=== PATIENT | female | born 1970 | race Caucasian/White ===

== ENCOUNTER 2018-03-20 00:40 | Inpatient (IN) ==
[2018-03-20] MEDS ORDERED: ONDANSETRON 4 MG/2 ML VIAL IV STA (01:01)
[2018-03-20] MEDS ORDERED: SODIUM CHLORIDE 0.9% 1,000 ML IV STA (01:01)
[2018-03-20] MEDS ORDERED: PANTOPRAZOLE 40 MG VIAL IV STA (01:01)
[2018-03-20] MEDS ORDERED: MORPHINE 4 MG/1 ML VIAL IV STA (01:01)
[2018-03-20 01:31] LABS: Basophils % 0.2 % (0.0-0.8); Eosinophils % 0.1 % (0.00-10.9); Hematocrit 34.9 VOL% (35.7-47.0); Hemoglobin 11.3 GM/DL (12.0-16.0); Immature Granulocytes % 2.1 %; Immature Granulocytes Absolute 0.34 #; Lymphocytes # 1.4 10*3/uL (1.4-4.0); Lymphocytes % 8.5 % (21.3-54.2); Mean Corpuscular HGB Conc 32.4 GM/DL (32-36); Mean Corpuscular Hemoglobin 32 PG (27-34); Mean Corpuscular Volume 97.5 FL (87-102); Mean Platelet Volume 11.2 FL (9.6-12.0); Monocytes # 1.4 10*3/uL (0.11-0.8); Monocytes % 8.5 % (1.7-12.7); Neutrophils # 13.3 10*3/uL (1.4-7.4); Neutrophils % 80.6 % (38.7-73.9); Platelet Count 93 T/CUMM (130-400); Red Blood Count 3.58 MC/CUMM (3.8-5.5); Red Cell Distribution Width 23.8 % (9.3-17.3); White Blood Count 16.5 T/CUMM (4-12)
[2018-03-20 01:52] LABS: Lactic Acid 1.5 MMOL/L (0.4-2.0)
[2018-03-20 02:12] LABS: Anisocytosis 1+; Band Neutrophils 14 % (0-10); Lymphocytes 4 % (20-55); Metamyelocytes 1 %; Nucleated Red Blood Cells 1 (0-5); Polychromasia 1+; Segmented Neutrophils 71 % (50-85); Total Cells Counted 100
[2018-03-20 02:13] LABS: Poikilocytosis 1+
[2018-03-20 02:31] LABS: Alanine Aminotransferase 30 U/L (13-56); Albumin 3.4 G/DL (3.4-5.0); Alkaline Phosphatase 117 U/L (45-117); Amylase 38 U/L (25-115); Aspartate Amino Transferase 23 U/L (0-37); Blood Urea Nitrogen 17 MG/DL (7-18); Calcium 9.3 MG/DL (8.5-10.1); Glucose 85 MG/DL (74-106); Osmolality,Calculated 275.7 MOS/KG (273-304); Potassium 3.3 MMOL/L (3.5-5.1); Sodium 138 MMOL/L (136-145); Total Protein 7.8 G/DL (6.4-8.3); Troponin I Only < 0.015 NG/ML (0.00-0.045)
[2018-03-20] MEDS ORDERED: ONDANSETRON 4 MG/2 ML VIAL IV PRN ×2 (02:47)
[2018-03-20] MEDS: DEXTROSE 5% LACTATED RINGERS 1,000 ML IV SCH ×4 (03:59→23:56)
[2018-03-20 04:07] LABS: Apearance,Urine CLEAR (Clear); Bilirubin,Urine Negative (Negative); Blood, Urine Small mg/dL (Negative); Glucose,Urine (UA) Negative (Negative); Ketones,Urine Negative (Negative); Mucus,Urine Occasional /LPF (Occasional); Nitrite,Urine Negative (Negative); Protein,Urine Negative; RBC,Urine 8 /HPF (0-4); Squamous Epithelial Cell,Urine Occasional /HPF (0-10); Urine Color Yellow (Yellow); Urine Specific Gravity > 1.060 (1.001-1.035); Urine Urobilinogen < 2.0 EU/DL (0.2-1.0); WBC,Urine 1 /HPF (0-6)
[2018-03-20] MEDS: MORPHINE 4 MG/1 ML VIAL IV PRN ×5 (04:35→23:01)
[2018-03-20] MEDS: PANTOPRAZOLE 40 MG VIAL IV SCH (08:32)
[2018-03-20] MEDS ORDERED: POTASSIUM CHLORIDE RIDER 20 MEQ in PREMIX 1 EACH IV PRN (08:43)
[2018-03-20] MEDS ORDERED: POTASSIUM CHLORIDE RIDER 10 MEQ in PREMIX 1 EACH IV PRN (08:43)
[2018-03-20] MEDS: POTASSIUM CHLORIDE RIDER 10 MEQ in PREMIX 1 EACH IV SCH ×5 (09:54→19:28)
[2018-03-20] MEDS ORDERED: BUPIVACAINE MPF 0.25% /EPI 30 ML VIAL ONE (14:07)
[2018-03-20] MEDS ORDERED: LIDOCAINE 1%/EPI INJ 20 ML VIAL ONE (14:07)
[2018-03-20] MEDS: AMPICILLIN/SULBACTAM 1,500 MG in SODIUM CHLORIDE 0.9% 100 ML IV SCH ×3 (15:33→22:18)
[2018-03-20] MEDS ORDERED: SEVOFLURANE 1 UNIT/15 MINUTE INH ONE (16:59)
[2018-03-20] MEDS ORDERED: MIDAZOLAM 2 MG/2 ML VIAL ONE (16:59)
[2018-03-20] MEDS ORDERED: PROPOFOL 200 MG/20 ML VIAL IV ONE (16:59)
[2018-03-20] MEDS ORDERED: fentaNYL 100 MCG/2 ML VIAL ONE (16:59)
[2018-03-20] MEDS ORDERED: ONDANSETRON 4 MG/2 ML VIAL ONE (17:00)
[2018-03-20] MEDS ORDERED: PHENYLEPHRINE 1 MG/10 ML SYRINGE IV ONE (17:00)
[2018-03-20] MEDS ORDERED: PHENYLEPHRINE 0.5% NASAL SPRAY 15 ML BOTTLE BOTH NARES ONE (17:00)
[2018-03-20] MEDS ORDERED: SCOPOLAMINE 1.5 MG PATCH TRANSDERM ONE (17:00)
[2018-03-20] MEDS ORDERED: SUCCINYLCHOLINE 200 MG/10 ML VIAL ONE (17:00)
[2018-03-20] MEDS ORDERED: DEXAMETHASONE 10 MG/1 ML VIAL ONE (17:00)
[2018-03-20] MEDS ORDERED: LACTATED RINGERS 2,000 ML IV ONE (17:01)
[2018-03-20] MEDS ORDERED: ROCURONIUM 100 MG/10 ML VIAL IV ONE (17:01)
[2018-03-20] MEDS ORDERED: LABETALOL 100 MG/20 ML VIAL IV ONE (17:01)
[2018-03-20] MEDS ORDERED: NEOSTIGMINE 10 MG/10 ML VIAL ONE (19:12)
[2018-03-21] MEDS: DEXTROSE 5% LACTATED RINGERS 1,000 ML IV SCH ×3 (03:06→22:01)
[2018-03-21 06:01] LABS: Basophils % 0.1 % (0.0-0.8); Hemoglobin 9.7 GM/DL (12.0-16.0); Immature Granulocytes % 1.3 %; Immature Granulocytes Absolute 0.11 #; Lymphocytes # 0.4 10*3/uL (1.4-4.0); Lymphocytes % 5.2 % (21.3-54.2); Mean Corpuscular HGB Conc 32.3 GM/DL (32-36); Mean Corpuscular Hemoglobin 32 PG (27-34); Mean Corpuscular Volume 97.4 FL (87-102); Mean Platelet Volume 11.2 FL (9.6-12.0); Monocytes # 0.4 10*3/uL (0.11-0.8); Monocytes % 4.9 % (1.7-12.7); NRBC # 0.02 10*3/uL; Neutrophils # 7.3 10*3/uL (1.4-7.4); Neutrophils % 88.5 % (38.7-73.9); Platelet Count 108 T/CUMM (130-400); Red Blood Count 3.08 MC/CUMM (3.8-5.5); Red Cell Distribution Width 23.1 % (9.3-17.3); White Blood Count 8.3 T/CUMM (4-12)
[2018-03-21 06:21] LABS: Anisocytosis 1+; Band Neutrophils 5 % (0-10); Hypochromasia 1+; Lymphocytes 6 % (20-55); Macrocytosis 1+; Segmented Neutrophils 86 % (50-85); Total Cells Counted 100
[2018-03-21] MEDS: AMPICILLIN/SULBACTAM 1,500 MG in SODIUM CHLORIDE 0.9% 100 ML IV SCH ×4 (06:21→23:13)
[2018-03-21 06:22] LABS: Platelet Estimate Decreased; Polychromasia Slight
[2018-03-21 06:24] LABS: Albumin 2.5 G/DL (3.4-5.0); Bilirubin,Total 0.6 MG/DL (0.2-1.0); Calcium 8.1 MG/DL (8.5-10.1); Osmolality,Calculated 275.8 MOS/KG (273-304); Potassium 4.4 MMOL/L (3.5-5.1); Total Protein 5.9 G/DL (6.4-8.3)
[2018-03-21] MEDS: MORPHINE 4 MG/1 ML VIAL IV PRN ×4 (06:31→20:27)
[2018-03-21] MEDS: PANTOPRAZOLE 40 MG VIAL IV SCH (10:34)
[2018-03-22] MEDS: MORPHINE 4 MG/1 ML VIAL IV PRN ×6 (01:22→21:29)
[2018-03-22] MEDS: AMPICILLIN/SULBACTAM 1,500 MG in SODIUM CHLORIDE 0.9% 100 ML IV SCH ×4 (05:00→23:26)
[2018-03-22] MEDS: DEXTROSE 5% LACTATED RINGERS 1,000 ML IV SCH ×3 (06:56→23:58)
[2018-03-22] MEDS: PANTOPRAZOLE 40 MG VIAL IV SCH (09:22)
[2018-03-23] MEDS: MORPHINE 4 MG/1 ML VIAL IV PRN ×4 (02:52→14:42)
[2018-03-23] MEDS: AMPICILLIN/SULBACTAM 1,500 MG in SODIUM CHLORIDE 0.9% 100 ML IV SCH ×4 (05:03→23:34)
[2018-03-23] MEDS: PANTOPRAZOLE 40 MG VIAL IV SCH (08:52)
[2018-03-23] MEDS: DEXTROSE 5% LACTATED RINGERS 1,000 ML IV SCH (10:50)
[2018-03-23] MEDS: FOLIC ACID 1 MG TABLET PO SCH (11:34)
[2018-03-23] MEDS: predniSONE 20 MG TABLET PO SCH (14:42)
[2018-03-23] MEDS ORDERED: FERROUS SULFATE 325 MG TABLET PO SCH (21:00)
[2018-03-24] MEDS: DEXTROSE 5% LACTATED RINGERS 1,000 ML IV SCH (00:50)
[2018-03-24] MEDS: AMPICILLIN/SULBACTAM 1,500 MG in SODIUM CHLORIDE 0.9% 100 ML IV SCH ×4 (05:03→22:13)
[2018-03-24 07:36] LABS: Basophils % 0.4 % (0.0-0.8); Eosinophils # 0.1 10*3/uL (0.0-0.87); Eosinophils % 1.3 % (0.00-10.9); Hematocrit 30.1 VOL% (35.7-47.0); Hemoglobin 9.2 GM/DL (12.0-16.0); Immature Granulocytes % 2.6 %; Immature Granulocytes Absolute 0.12 #; Lymphocytes # 0.6 10*3/uL (1.4-4.0); Lymphocytes % 12.7 % (21.3-54.2); Mean Corpuscular HGB Conc 30.6 GM/DL (32-36); Mean Corpuscular Hemoglobin 31 PG (27-34); Mean Corpuscular Volume 101.3 FL (87-102); Mean Platelet Volume 10.2 FL (9.6-12.0); Monocytes # 0.6 10*3/uL (0.11-0.8); Monocytes % 13.3 % (1.7-12.7); Neutrophils # 3.2 10*3/uL (1.4-7.4); Neutrophils % 69.7 % (38.7-73.9); Platelet Count 191 T/CUMM (130-400); Red Blood Count 2.97 MC/CUMM (3.8-5.5); Red Cell Distribution Width 20.9 % (9.3-17.3); White Blood Count 4.7 T/CUMM (4-12)
[2018-03-24 07:49] LABS: Calcium 8.4 MG/DL (8.5-10.1); Osmolality,Calculated 278.3 MOS/KG (273-304); Potassium 4.6 MMOL/L (3.5-5.1)
[2018-03-24 09:06] LABS: Hypochromasia 2+; Lymphocytes 10 % (20-55); Platelet Estimate Adequate; Segmented Neutrophils 80 % (50-85); Total Cells Counted 100
[2018-03-24] MEDS: PANTOPRAZOLE 40 MG VIAL IV SCH (09:15)
[2018-03-24] MEDS: predniSONE 20 MG TABLET PO SCH (09:16)
[2018-03-24] MEDS: FOLIC ACID 1 MG TABLET PO SCH (09:16)
[2018-03-25] MEDS: AMPICILLIN/SULBACTAM 1,500 MG in SODIUM CHLORIDE 0.9% 100 ML IV SCH ×4 (05:02→23:41)
[2018-03-25] MEDS: FOLIC ACID 1 MG TABLET PO SCH (09:40)
[2018-03-25] MEDS: PANTOPRAZOLE 40 MG VIAL IV SCH (09:40)
[2018-03-25] MEDS: predniSONE 20 MG TABLET PO SCH (09:40)
[2018-03-26] MEDS: AMPICILLIN/SULBACTAM 1,500 MG in SODIUM CHLORIDE 0.9% 100 ML IV SCH ×4 (05:52→22:51)
[2018-03-26] MEDS: PANTOPRAZOLE 40 MG VIAL IV SCH (08:39)
[2018-03-26] MEDS: predniSONE 20 MG TABLET PO SCH (08:39)
[2018-03-26] MEDS: FOLIC ACID 1 MG TABLET PO SCH (08:39)
[2018-03-26] MEDS ORDERED: MAGNESIUM HYDROXIDE SUSP 30 ML UDCUP PO ONE (11:32)
[2018-03-27] MEDS: AMPICILLIN/SULBACTAM 1,500 MG in SODIUM CHLORIDE 0.9% 100 ML IV SCH ×2 (04:47→11:22)
[2018-03-27] MEDS ORDERED: BISACODYL 10 MG SUPP RECTAL ONE (07:23)
[2018-03-27] MEDS: FOLIC ACID 1 MG TABLET PO SCH (08:49)
[2018-03-27] MEDS: predniSONE 20 MG TABLET PO SCH (08:49)
[2018-03-27] MEDS: PANTOPRAZOLE 40 MG VIAL IV SCH (08:49)
[2018-03-27 11:29] VITALS: BP 131/68
== END 2018-03-27 11:30 | disposition home or self-care (01) | DRG 329 ==
LOC: N.ED 00:40 → N.EDINP 02:47 → N.3E 03:26
PROVIDERS: ADMIT Surgery; ATTEND Surgery

== ENCOUNTER 2018-07-17 19:12 | Inpatient (IN) ==
[2018-07-17] MEDS ORDERED: ONDANSETRON 4 MG/2 ML VIAL IV STA (19:27)
[2018-07-17] MEDS ORDERED: METOCLOPRAMIDE 10 MG/2 ML VIAL IV STA (19:27)
[2018-07-17] MEDS ORDERED: SODIUM CHLORIDE 0.9% 1,000 ML IV STA (19:27)
[2018-07-17] MEDS ORDERED: DICYCLOMINE 20 MG/2 ML AMP IM ONE (19:27)
[2018-07-17 20:14] LABS: Basophils % 0.5 % (0.0-0.8); Eosinophils # 0.2 10*3/uL (0.0-0.87); Eosinophils % 3.8 % (0.00-10.9); Hemoglobin 11.7 GM/DL (12.0-16.0); Immature Granulocytes % 0.5 %; Immature Granulocytes Absolute 0.03 #; Lymphocytes # 0.3 10*3/uL (1.4-4.0); Lymphocytes % 5.6 % (21.3-54.2); Mean Corpuscular HGB Conc 30.8 GM/DL (32-36); Mean Corpuscular Hemoglobin 32 PG (27-34); Mean Corpuscular Volume 103.5 FL (87-102); Mean Platelet Volume 11.8 FL (9.6-12.0); Monocytes # 0.7 10*3/uL (0.11-0.8); Monocytes % 12.1 % (1.7-12.7); Neutrophils # 4.7 10*3/uL (1.4-7.4); Neutrophils % 77.5 % (38.7-73.9); Platelet Count 107 T/CUMM (130-400); Red Blood Count 3.67 MC/CUMM (3.8-5.5); Red Cell Distribution Width 14.4 % (9.3-17.3)
[2018-07-17 20:38] LABS: Albumin 3.7 G/DL (3.4-5.0); Bilirubin,Total 0.5 MG/DL (0.2-1.0); Calcium 9.2 MG/DL (8.5-10.1); Osmolality,Calculated 280.4 MOS/KG (273-304); Potassium 3.4 MMOL/L (3.5-5.1); Total Protein 8.9 G/DL (6.4-8.3)
[2018-07-17 21:25] LABS: Apearance,Urine CLEAR (Clear); Bilirubin,Urine Negative (Negative); Blood, Urine Moderate mg/dL (Negative); Glucose,Urine (UA) Negative (Negative); Ketones,Urine 5 mg/dL (Negative); Mucus,Urine Occasional /LPF (Occasional); Nitrite,Urine Negative (Negative); Protein,Urine 100 MG/DL; RBC,Urine 19 /HPF (0-4); Squamous Epithelial Cell,Urine Occasional /HPF (0-10); Urine Color Amber (Yellow); Urine Specific Gravity 1.027 (1.001-1.035); WBC,Urine 2 /HPF (0-6)
[2018-07-17 22:15] LABS: Anisocytosis 1+; Band Neutrophils 6 % (0-10); Eosinophils 4 % (0-10); Lymphocytes 4 % (20-55); Platelet Estimate Adequate; Segmented Neutrophils 77 % (50-85); Total Cells Counted 100
[2018-07-17] MEDS ORDERED: ONDANSETRON 4 MG/2 ML VIAL IV PRN (23:29)
[2018-07-17] MEDS ORDERED: MORPHINE 4 MG/1 ML VIAL IV PRN (23:29)
[2018-07-17] MEDS ORDERED: SODIUM CHLORIDE 0.9% 1,000 ML IV SCH (23:30)
[2018-07-17] MEDS ORDERED: POTASSIUM CHLORIDE INJ 40 MEQ in SODIUM CHLORIDE 0.9% 1,000 ML IV SCH (23:45)
[2018-07-18] MEDS: SODIUM CHLOR 0.9% KCL 40 MEQ 40 MEQ/1,000 ML BAG IV SCH ×3 (01:57→21:29)
[2018-07-18 05:43] LABS: Basophils % 0.6 % (0.0-0.8); Eosinophils # 0.3 10*3/uL (0.0-0.87); Eosinophils % 7.2 % (0.00-10.9); Hematocrit 29.9 VOL% (35.7-47.0); Hemoglobin 9.3 GM/DL (12.0-16.0); Immature Granulocytes % 0.6 %; Immature Granulocytes Absolute 0.02 #; Lymphocytes # 0.7 10*3/uL (1.4-4.0); Lymphocytes % 20.1 % (21.3-54.2); Mean Corpuscular HGB Conc 31.1 GM/DL (32-36); Mean Corpuscular Hemoglobin 32 PG (27-34); Mean Corpuscular Volume 102.7 FL (87-102); Mean Platelet Volume 10.1 FL (9.6-12.0); Monocytes # 0.7 10*3/uL (0.11-0.8); Monocytes % 18.9 % (1.7-12.7); Neutrophils # 1.9 10*3/uL (1.4-7.4); Neutrophils % 52.6 % (38.7-73.9); Platelet Count 131 T/CUMM (130-400); Red Blood Count 2.91 MC/CUMM (3.8-5.5); Red Cell Distribution Width 14.6 % (9.3-17.3); White Blood Count 3.6 T/CUMM (4-12)
[2018-07-18 06:01] LABS: Albumin 2.9 G/DL (3.4-5.0); Bilirubin,Total 0.6 MG/DL (0.2-1.0); Calcium 8.1 MG/DL (8.5-10.1); Osmolality,Calculated 281.1 MOS/KG (273-304); Potassium 4.2 MMOL/L (3.5-5.1); Total Protein 7.1 G/DL (6.4-8.3)
[2018-07-18 06:20] LABS: Atypical Lymphocytes Few; Band Neutrophils 1 % (0-10); Eosinophils 12 % (0-10); Lymphocytes 27 % (20-55); Segmented Neutrophils 49 % (50-85); Total Cells Counted 100
[2018-07-18 06:21] LABS: Hypochromasia 1+; Macrocytosis Slight
[2018-07-18] MEDS: PANTOPRAZOLE 40 MG VIAL IV SCH (10:31)
[2018-07-18] MEDS ORDERED: ACETAMINOPHEN 325 MG TABLET PO PRN (11:50)
[2018-07-18] MEDS ORDERED: ALPRAZolam 0.25 MG TABLET PO PRN (15:10)
[2018-07-18] MEDS ORDERED: ONDANSETRON 4 MG TABLET PO PRN (15:10)
[2018-07-18] MEDS ORDERED: traMADol 50 MG TABLET PO PRN (15:10)
[2018-07-18] MEDS: FOLIC ACID 1 MG TABLET PO SCH (15:49)
[2018-07-18] MEDS: LORATADINE 10 MG TABLET PO SCH (15:49)
[2018-07-19] MEDS: SODIUM CHLOR 0.9% KCL 40 MEQ 40 MEQ/1,000 ML BAG IV SCH (05:31)
[2018-07-19] MEDS: FOLIC ACID 1 MG TABLET PO SCH (08:38)
[2018-07-19] MEDS: LORATADINE 10 MG TABLET PO SCH (08:38)
[2018-07-19] MEDS: PANTOPRAZOLE 40 MG VIAL IV SCH (08:39)
[2018-07-19] MEDS ORDERED: ENOXAPARIN 40 MG/0.4 ML SYRINGE SUBCUT SCH (09:00)
[2018-07-19 10:58] VITALS: BP 108/57
== END 2018-07-19 13:10 | disposition home or self-care (01) | DRG 392 ==
LOC: EDUNIT# → EDBD → N.ED 19:12 → N.EDINP 23:29 → N.4E 07-18 01:21
PROVIDERS: ADMIT Internal Medicine; ATTEND Internal Medicine

== ENCOUNTER 2019-09-28 18:39 | Inpatient (IN) ==
[2019-09-28] MEDS ORDERED: SODIUM CHLORIDE 0.9% 1,000 ML IV STA (20:55)
[2019-09-28] MEDS ORDERED: ONDANSETRON 4 MG/2 ML VIAL IV ONE (20:55)
[2019-09-28] MEDS ORDERED: HYDROmorphone 2 MG/1 ML VIAL IV STA ×2 (20:56→22:56)
[2019-09-28] MEDS ORDERED: KETOROLAC 30 MG/1 ML VIAL IV ONE (20:56)
[2019-09-28 21:49] LABS: PT Patient Result 10.8 SECS (9.6-12.2)
[2019-09-28 21:50] LABS: Apearance,Urine CLEAR (Clear); Bacteria,Urine Occasional /HPF (Few); Bilirubin,Urine Negative (Negative); Blood, Urine Small mg/dL (Negative); Glucose,Urine (UA) Negative (Negative); Hyaline Casts,Urine 4 /LPF (0-3); Ketones,Urine 5 mg/dL (Negative); Mucus,Urine Many /LPF (Occasional); Nitrite,Urine Negative (Negative); Protein,Urine Negative; RBC,Urine 15 /HPF (0-4); Squamous Epithelial Cell,Urine Occasional /HPF (0-10); Urine Color Yellow (Yellow); Urine Specific Gravity 1.025 (1.001-1.035); WBC,Urine 1 /HPF (0-6)
[2019-09-28 21:59] LABS: Basophils # 0.1 10*3/uL (0.0-0.2); Basophils % 1.7 % (0.0-0.8); Eosinophils # 0.1 10*3/uL (0.0-0.87); Eosinophils % 1.7 % (0.00-10.9); Hematocrit 42.4 VOL% (35.7-47.0); Hemoglobin 12.5 GM/DL (12.0-16.0); Immature Granulocytes % 1.1 %; Immature Granulocytes Absolute 0.06 #; Lymphocytes # 0.7 10*3/uL (1.4-4.0); Lymphocytes % 13.1 % (21.3-54.2); Mean Corpuscular HGB Conc 29.5 GM/DL (32-36); Mean Corpuscular Volume 87.4 FL (87-102); Mean Platelet Volume 9.2 FL (9.6-12.0); Monocytes % 18.6 % (1.7-12.7); Neutrophils % 63.8 % (38.7-73.9); Platelet Count 478 T/CUMM (130-400); Red Blood Count 4.85 MC/CUMM (3.8-5.5); Red Cell Distribution Width 20.5 % (9.3-17.3); White Blood Count 5.3 T/CUMM (4-12)
[2019-09-28 22:01] LABS: Albumin 2.6 G/DL (3.4-5.0); Bilirubin,Total 0.4 MG/DL (0.2-1.0); Calcium 9.6 MG/DL (8.5-10.1); Osmolality,Calculated 280.1 MOS/KG (273-304); Total Protein 8.6 G/DL (6.4-8.3)
[2019-09-28 22:04] LABS: Anisocytosis Slight; Eosinophils 2 % (0-10); Hypochromasia Slight; Lymphocytes 11 % (20-55); Microcytosis Slight; Platelet Estimate Adequate; Segmented Neutrophils 71 % (50-85); Total Cells Counted 100
[2019-09-28] MEDS ORDERED: cefTRIAXone 1,000 MG in SODIUM CHLORIDE 0.9% 100 ML IV STA (23:52)
[2019-09-28] MEDS ORDERED: metroNIDAZOLE INJ 500 MG in PREMIX 1 EACH IV STA (23:52)
[2019-09-29] MEDS ORDERED: ONDANSETRON 4 MG/2 ML VIAL IV PRN (00:57)
[2019-09-29] MEDS ORDERED: DOCUSATE SODIUM 100 MG CAPSULE PO PRN (00:57)
[2019-09-29] MEDS ORDERED: diphenhydrAMINE CAP 25 MG CAPSULE PO PRN (00:57)
[2019-09-29] MEDS ORDERED: guaiFENesin/DM ER 600-30 MG TABLET PO PRN (00:57)
[2019-09-29] MEDS ORDERED: ZALEPLON 5 MG CAPSULE PO PRN (00:57)
[2019-09-29] MEDS ORDERED: ACETAMINOPHEN 325 MG TABLET PO PRN (00:57)
[2019-09-29] MEDS ORDERED: HYDROmorphone 2 MG/1 ML VIAL IV PRN (00:59)
[2019-09-29] MEDS ORDERED: fentaNYL 50 MCG/HR PATCH TRANSDERM ONE (00:59)
[2019-09-29 02:14] LABS: Alanine Aminotransferase < 9 U/L (13-56); Albumin 2.3 G/DL (3.4-5.0); Alkaline Phosphatase 186 U/L (45-117); Aspartate Amino Transferase 17 U/L (0-37); Bilirubin,Total < 0.39 MG/DL (0.2-1.0); Blood Urea Nitrogen 8 MG/DL (7-18); Calcium 8.9 MG/DL (8.5-10.1); Estimated Glom Filtration Rate 95 ML/MIN; Glucose 120 MG/DL (74-106); Osmolality,Calculated 279.3 MOS/KG (273-304); Total Protein 7.7 G/DL (6.4-8.3)
[2019-09-29 02:15] LABS: Basophils # 0.1 10*3/uL (0.0-0.2); Eosinophils # 0.1 10*3/uL (0.0-0.87); Eosinophils % 1.6 % (0.00-10.9); Hematocrit 39.2 VOL% (35.7-47.0); Hemoglobin 11.4 GM/DL (12.0-16.0); Immature Granulocytes % 1.3 %; Immature Granulocytes Absolute 0.07 #; Lymphocytes # 0.9 10*3/uL (1.4-4.0); Lymphocytes % 15.4 % (21.3-54.2); Mean Corpuscular HGB Conc 29.1 GM/DL (32-36); Mean Corpuscular Volume 88.1 FL (87-102); Mean Platelet Volume 9.8 FL (9.6-12.0); Monocytes % 19.7 % (1.7-12.7); Platelet Count 398 T/CUMM (130-400); Red Blood Count 4.45 MC/CUMM (3.8-5.5); Red Cell Distribution Width 20.5 % (9.3-17.3); White Blood Count 5.5 T/CUMM (4-12)
[2019-09-29 02:37] LABS: Atypical Lymphocytes Few; Eosinophils 2 % (0-10); Lymphocytes 21 % (20-55); Segmented Neutrophils 53 % (50-85)
[2019-09-29 02:39] LABS: Hypochromasia Slight; Platelet Estimate Increased; Polychromasia Few
[2019-09-29 02:40] LABS: Total Cells Counted 100
[2019-09-29] MEDS: SODIUM CHLORIDE 0.9% 1,000 ML IV SCH ×2 (02:58→15:35)
[2019-09-29] MEDS: metroNIDAZOLE INJ 500 MG in PREMIX 1 EACH IV SCH ×3 (03:00→18:13)
[2019-09-29] MEDS ORDERED: INFLUENZA VIRUS VACCINE 0.5 ML SYRINGE IM ONE (04:26)
[2019-09-29] MEDS: HYDROmorphone 2 MG/1 ML VIAL IV PRN ×5 (09:24→21:47)
[2019-09-29] MEDS: PANTOPRAZOLE 40 MG TABLET PO SCH (09:25)
[2019-09-29] MEDS: ENOXAPARIN 40 MG/0.4 ML SYRINGE SUBCUT SCH (09:25)
[2019-09-29] MEDS ORDERED: fentaNYL 75 MCG/HR PATCH TRANSDERM SCH (10:30)
[2019-09-29] MEDS ORDERED: LACTULOSE 20 GM/30 ML UDCUP PO ONE ×2 (10:30→15:00)
[2019-09-29] MEDS: DOCUSATE SODIUM 100 MG CAPSULE PO SCH ×2 (11:15→21:48)
[2019-09-30] MEDS: HYDROmorphone 2 MG/1 ML VIAL IV PRN ×6 (00:55→14:37)
[2019-09-30] MEDS ORDERED: cefTRIAXone 1,000 MG in SYRINGE 1 EACH IV SCH (01:00)
[2019-09-30] MEDS: metroNIDAZOLE INJ 500 MG in PREMIX 1 EACH IV SCH (02:31)
[2019-09-30] MEDS: SODIUM CHLORIDE 0.9% 1,000 ML IV SCH ×2 (04:58→19:33)
[2019-09-30] MEDS ORDERED: GABAPENTIN 100 MG CAPSULE PO SCH (09:00)
[2019-09-30] MEDS ORDERED: fentaNYL 100 MCG/HR PATCH TRANSDERM SCH (09:00)
[2019-09-30] MEDS: DOCUSATE SODIUM 100 MG CAPSULE PO SCH ×2 (09:02→20:12)
[2019-09-30] MEDS: PANTOPRAZOLE 40 MG TABLET PO SCH (09:02)
[2019-09-30] MEDS: ENOXAPARIN 40 MG/0.4 ML SYRINGE SUBCUT SCH (09:03)
[2019-09-30] MEDS ORDERED: NALOXONE 0.4 MG/ML VIAL IV PRN (12:54)
[2019-09-30] MEDS: GABAPENTIN 300 MG CAPSULE PO SCH ×2 (14:36→20:11)
[2019-09-30] MEDS: IBUPROFEN 600 MG TABLET PO SCH ×2 (14:36→20:11)
[2019-09-30] MEDS: HYDROmorphone PCA 30 MG/30 ML SYRINGE IV SCH (15:43)
[2019-10-01] MEDS: SODIUM CHLORIDE 0.9% 1,000 ML IV SCH ×3 (04:23→20:21)
[2019-10-01] MEDS: PANTOPRAZOLE 40 MG TABLET PO SCH (10:44)
[2019-10-01] MEDS: ENOXAPARIN 40 MG/0.4 ML SYRINGE SUBCUT SCH (10:44)
[2019-10-01] MEDS: GABAPENTIN 300 MG CAPSULE PO SCH ×3 (10:44→20:51)
[2019-10-01] MEDS: DOCUSATE SODIUM 100 MG CAPSULE PO SCH ×2 (10:44→20:51)
[2019-10-01] MEDS: IBUPROFEN 600 MG TABLET PO SCH ×3 (10:44→20:51)
[2019-10-01] MEDS: fentaNYL 25 MCG/HR PATCH TRANSDERM SCH (11:36)
[2019-10-01] MEDS: fentaNYL 100 MCG/HR PATCH TRANSDERM SCH (11:37)
[2019-10-01] MEDS: oxyCODONE/ACETAMINOPHEN 5-325 MG TABLET PO PRN ×2 (16:22→22:09)
[2019-10-02] MEDS: oxyCODONE/ACETAMINOPHEN 5-325 MG TABLET PO PRN ×4 (04:10→21:08)
[2019-10-02] MEDS: SODIUM CHLORIDE 0.9% 1,000 ML IV SCH (08:09)
[2019-10-02] MEDS: DOCUSATE SODIUM 100 MG CAPSULE PO SCH ×2 (08:39→22:03)
[2019-10-02] MEDS: GABAPENTIN 300 MG CAPSULE PO SCH ×3 (08:39→22:03)
[2019-10-02] MEDS: PANTOPRAZOLE 40 MG TABLET PO SCH (08:39)
[2019-10-02] MEDS: IBUPROFEN 600 MG TABLET PO SCH ×3 (08:39→22:03)
[2019-10-02] MEDS: ENOXAPARIN 40 MG/0.4 ML SYRINGE SUBCUT SCH (10:35)
[2019-10-03] MEDS: oxyCODONE/ACETAMINOPHEN 5-325 MG TABLET PO PRN ×6 (01:16→21:36)
[2019-10-03] MEDS: IBUPROFEN 600 MG TABLET PO SCH ×3 (08:08→21:37)
[2019-10-03] MEDS: GABAPENTIN 300 MG CAPSULE PO SCH ×3 (08:09→21:41)
[2019-10-03] MEDS: ENOXAPARIN 40 MG/0.4 ML SYRINGE SUBCUT SCH (08:09)
[2019-10-03] MEDS: DOCUSATE SODIUM 100 MG CAPSULE PO SCH ×2 (08:09→21:38)
[2019-10-03] MEDS: PANTOPRAZOLE 40 MG TABLET PO SCH (08:09)
[2019-10-03] MEDS: HYDROmorphone PCA 30 MG/30 ML SYRINGE IV SCH (13:35)
[2019-10-03] MEDS ORDERED: LORazepam 0.5 MG TABLET PO PRN (14:18)
[2019-10-04] MEDS: oxyCODONE/ACETAMINOPHEN 5-325 MG TABLET PO PRN ×5 (02:25→18:16)
[2019-10-04] MEDS: ENOXAPARIN 40 MG/0.4 ML SYRINGE SUBCUT SCH (08:31)
[2019-10-04] MEDS: fentaNYL 25 MCG/HR PATCH TRANSDERM SCH (08:31)
[2019-10-04] MEDS: IBUPROFEN 600 MG TABLET PO SCH ×3 (08:32→21:07)
[2019-10-04] MEDS: fentaNYL 100 MCG/HR PATCH TRANSDERM SCH (08:32)
[2019-10-04] MEDS: GABAPENTIN 300 MG CAPSULE PO SCH ×3 (08:33→21:07)
[2019-10-04] MEDS: PANTOPRAZOLE 40 MG TABLET PO SCH (08:33)
[2019-10-04] MEDS: DOCUSATE SODIUM 100 MG CAPSULE PO SCH ×2 (08:33→21:08)
[2019-10-04] MEDS: POLYETHYLENE GLYCOL POWDER 17 GM PACK PO SCH (09:53)
[2019-10-04] MEDS: HYDROmorphone PCA 30 MG/30 ML SYRINGE IV SCH ×3 (13:46→23:57)
[2019-10-04] MEDS ORDERED: oxyCODONE ER 40 MG TABLET PO SCH (21:00)
[2019-10-05] MEDS: IBUPROFEN 600 MG TABLET PO SCH ×3 (09:16→20:05)
[2019-10-05] MEDS: DOCUSATE SODIUM 100 MG CAPSULE PO SCH ×2 (09:16→20:05)
[2019-10-05] MEDS: POLYETHYLENE GLYCOL POWDER 17 GM PACK PO SCH (09:16)
[2019-10-05] MEDS: oxyCODONE ER 20 MG TABLET PO SCH ×2 (09:17→20:05)
[2019-10-05] MEDS: ENOXAPARIN 40 MG/0.4 ML SYRINGE SUBCUT SCH (09:17)
[2019-10-05] MEDS: GABAPENTIN 300 MG CAPSULE PO SCH ×3 (09:17→20:05)
[2019-10-05] MEDS: PANTOPRAZOLE 40 MG TABLET PO SCH (09:17)
[2019-10-05] MEDS: HYDROmorphone PCA 30 MG/30 ML SYRINGE IV SCH (13:33)
[2019-10-06] MEDS: oxyCODONE/ACETAMINOPHEN 5-325 MG TABLET PO PRN (03:23)
[2019-10-06 05:37] LABS: Calcium 9.2 MG/DL (8.5-10.1); Osmolality,Calculated 283.8 MOS/KG (273-304)
[2019-10-06] MEDS: POLYETHYLENE GLYCOL POWDER 17 GM PACK PO SCH (09:12)
[2019-10-06] MEDS: IBUPROFEN 600 MG TABLET PO SCH ×3 (09:12→20:19)
[2019-10-06] MEDS: DOCUSATE SODIUM 100 MG CAPSULE PO SCH ×2 (09:12→20:19)
[2019-10-06] MEDS: oxyCODONE ER 20 MG TABLET PO SCH (09:12)
[2019-10-06] MEDS: GABAPENTIN 300 MG CAPSULE PO SCH (09:12)
[2019-10-06] MEDS: PANTOPRAZOLE 40 MG TABLET PO SCH (09:12)
[2019-10-06] MEDS: HYDROmorphone PCA 30 MG/30 ML SYRINGE IV SCH ×2 (09:25→14:20)
[2019-10-06] MEDS: ENOXAPARIN 40 MG/0.4 ML SYRINGE SUBCUT SCH (09:31)
[2019-10-06] MEDS: oxyCODONE IR 5 MG TABLET PO PRN ×2 (16:39→22:08)
[2019-10-06] MEDS: PREGABALIN 75 MG CAPSULE PO SCH ×2 (16:39→20:19)
[2019-10-06] MEDS: oxyCODONE ER 10 MG TABLET PO SCH (20:19)
[2019-10-07] MEDS: oxyCODONE IR 5 MG TABLET PO PRN ×3 (05:59→15:19)
[2019-10-07] MEDS: IBUPROFEN 600 MG TABLET PO SCH ×3 (08:01→20:33)
[2019-10-07] MEDS: PANTOPRAZOLE 40 MG TABLET PO SCH (08:02)
[2019-10-07] MEDS: fentaNYL 25 MCG/HR PATCH TRANSDERM SCH (08:02)
[2019-10-07] MEDS: fentaNYL 100 MCG/HR PATCH TRANSDERM SCH (08:02)
[2019-10-07] MEDS: DOCUSATE SODIUM 100 MG CAPSULE PO SCH ×2 (08:02→20:35)
[2019-10-07] MEDS: oxyCODONE ER 10 MG TABLET PO SCH ×2 (08:02→20:34)
[2019-10-07] MEDS: ENOXAPARIN 40 MG/0.4 ML SYRINGE SUBCUT SCH (08:08)
[2019-10-07] MEDS: POLYETHYLENE GLYCOL POWDER 17 GM PACK PO SCH (08:08)
[2019-10-07] MEDS: PREGABALIN 75 MG CAPSULE PO SCH ×3 (08:09→20:35)
[2019-10-08] MEDS: oxyCODONE IR 5 MG TABLET PO PRN ×3 (00:55→11:15)
[2019-10-08] MEDS: ENOXAPARIN 40 MG/0.4 ML SYRINGE SUBCUT SCH (08:08)
[2019-10-08] MEDS: IBUPROFEN 600 MG TABLET PO SCH (08:09)
[2019-10-08] MEDS: oxyCODONE ER 10 MG TABLET PO SCH (08:09)
[2019-10-08] MEDS: PANTOPRAZOLE 40 MG TABLET PO SCH (08:09)
[2019-10-08] MEDS: PREGABALIN 75 MG CAPSULE PO SCH (08:09)
[2019-10-08] MEDS: POLYETHYLENE GLYCOL POWDER 17 GM PACK PO SCH (08:09)
[2019-10-08] MEDS: DOCUSATE SODIUM 100 MG CAPSULE PO SCH (08:09)
[2019-10-08 11:27] VITALS: BP 91/51
[2019-10-08] MEDS: HYDROmorphone PCA 30 MG/30 ML SYRINGE IV SCH (11:49)
== END 2019-10-08 13:46 | disposition home or self-care (01) | DRG 948 ==
LOC: N.ED 18:39 → N.EDINP 23:58 → SUATTDRO 23:58 → N.4E 09-29 00:31
PROVIDERS: ADMIT Internal Medicine; ATTEND Internal Medicine

== ENCOUNTER 2019-10-09 20:06 | Inpatient (IN) ==
[2019-10-09] MEDS ORDERED: HYDROmorphone 2 MG/1 ML VIAL IV STA ×2 (20:46→21:37)
[2019-10-09] MEDS ORDERED: SODIUM CHLORIDE 0.9% 500 ML IV STA (20:46)
[2019-10-09] MEDS ORDERED: ONDANSETRON 4 MG/2 ML VIAL IV STA (20:46)
[2019-10-09 21:07] LABS: Basophils # 0.1 10*3/uL (0.0-0.2); Basophils % 0.7 % (0.0-0.8); Eosinophils # 0.1 10*3/uL (0.0-0.87); Eosinophils % 0.8 % (0.00-10.9); Hematocrit 41.8 VOL% (35.7-47.0); Hemoglobin 12.3 GM/DL (12.0-16.0); Immature Granulocytes % 0.6 %; Immature Granulocytes Absolute 0.06 #; Lymphocytes # 0.6 10*3/uL (1.4-4.0); Mean Corpuscular HGB Conc 29.4 GM/DL (32-36); Mean Corpuscular Volume 90.3 FL (87-102); Mean Platelet Volume 9.1 FL (9.6-12.0); Monocytes % 11.7 % (1.7-12.7); Neutrophils % 80.2 % (38.7-73.9); Platelet Count 499 T/CUMM (130-400); Red Blood Count 4.63 MC/CUMM (3.8-5.5); White Blood Count 10.6 T/CUMM (4-12)
[2019-10-09 21:28] LABS: Albumin 2.7 G/DL (3.4-5.0); Bilirubin,Total 0.5 MG/DL (0.2-1.0); Calcium 10.2 MG/DL (8.5-10.1); Osmolality,Calculated 269.1 MOS/KG (273-304); Total Protein 9.7 G/DL (6.4-8.3)
[2019-10-09] MEDS ORDERED: diphenhydrAMINE CAP 25 MG CAPSULE PO PRN (22:09)
[2019-10-09] MEDS ORDERED: PROMETHAZINE 25 MG TABLET PO PRN (22:09)
[2019-10-09] MEDS ORDERED: guaiFENesin/DM ER 600-30 MG TABLET PO PRN (22:09)
[2019-10-09] MEDS ORDERED: ACETAMINOPHEN 325 MG TABLET PO PRN (22:09)
[2019-10-09] MEDS ORDERED: DOCUSATE SODIUM 100 MG CAPSULE PO PRN (22:09)
[2019-10-09] MEDS ORDERED: ZALEPLON 5 MG CAPSULE PO PRN (22:09)
[2019-10-09] MEDS: SODIUM CHLORIDE 0.9% 1,000 ML IV SCH (23:52)
[2019-10-10] MEDS: HYDROmorphone 2 MG/1 ML VIAL IV PRN ×5 (00:43→17:21)
[2019-10-10] MEDS: ONDANSETRON 4 MG/2 ML VIAL IV PRN ×2 (00:43→05:55)
[2019-10-10 06:15] LABS: Basophils # 0.1 10*3/uL (0.0-0.2); Basophils % 1.3 % (0.0-0.8); Eosinophils # 0.1 10*3/uL (0.0-0.87); Eosinophils % 1.1 % (0.00-10.9); Hemoglobin 10.2 GM/DL (12.0-16.0); Immature Granulocytes % 0.8 %; Immature Granulocytes Absolute 0.06 #; Lymphocytes # 0.7 10*3/uL (1.4-4.0); Lymphocytes % 8.8 % (21.3-54.2); Mean Corpuscular HGB Conc 29.1 GM/DL (32-36); Mean Corpuscular Volume 91.2 FL (87-102); Monocytes % 13.1 % (1.7-12.7); Neutrophils % 74.9 % (38.7-73.9); Platelet Count 418 T/CUMM (130-400); Red Blood Count 3.85 MC/CUMM (3.8-5.5); Red Cell Distribution Width 21.8 % (9.3-17.3)
[2019-10-10 06:27] LABS: Calcium 9.4 MG/DL (8.5-10.1); Osmolality,Calculated 274.5 MOS/KG (273-304)
[2019-10-10 06:51] LABS: Hematocrit 34.2 VOL% (35.7-47.0)
[2019-10-10] MEDS ORDERED: INFLUENZA VIRUS VACCINE 0.5 ML SYRINGE IM ONE (07:34)
[2019-10-10] MEDS ORDERED: oxyCODONE IR 5 MG TABLET PO PRN (08:18)
[2019-10-10] MEDS: oxyCODONE ER 40 MG TABLET PO SCH ×2 (08:38→20:59)
[2019-10-10] MEDS: PANTOPRAZOLE 40 MG TABLET PO SCH (08:38)
[2019-10-10] MEDS: PREGABALIN 75 MG CAPSULE PO SCH ×3 (08:38→20:59)
[2019-10-10] MEDS: ENOXAPARIN 40 MG/0.4 ML SYRINGE SUBCUT SCH (08:38)
[2019-10-10] MEDS ORDERED: fentaNYL 25 MCG/HR PATCH TRANSDERM SCH (09:00)
[2019-10-10] MEDS: SODIUM CHLORIDE 0.9% 1,000 ML IV SCH (11:45)
[2019-10-10] MEDS ORDERED: fentaNYL 50 MCG/HR PATCH TRANSDERM SCH (12:33)
[2019-10-10] MEDS: HYDROmorphone 2 MG TABLET PO PRN (15:49)
[2019-10-10] MEDS ORDERED: DULoxetine 30 MG CAPSULE PO SCH (21:00)
[2019-10-10] MEDS: traZODone 50 MG TABLET PO SCH ×2 (21:09)
[2019-10-11] MEDS: SODIUM CHLORIDE 0.9% 1,000 ML IV SCH (04:14)
[2019-10-11] MEDS: HYDROmorphone 2 MG TABLET PO PRN ×5 (04:55→20:40)
[2019-10-11] MEDS: ENOXAPARIN 40 MG/0.4 ML SYRINGE SUBCUT SCH (08:11)
[2019-10-11] MEDS: oxyCODONE ER 40 MG TABLET PO SCH ×2 (08:11→20:41)
[2019-10-11] MEDS: PREGABALIN 75 MG CAPSULE PO SCH ×3 (08:11→20:41)
[2019-10-11] MEDS: PANTOPRAZOLE 40 MG TABLET PO SCH (08:11)
[2019-10-11] MEDS ORDERED: IBUPROFEN 800 MG TABLET PO ONE (10:51)
[2019-10-11] MEDS: traZODone 50 MG TABLET PO SCH (20:41)
[2019-10-12] MEDS: HYDROmorphone 2 MG TABLET PO PRN ×7 (00:34→23:06)
[2019-10-12] MEDS: oxyCODONE ER 40 MG TABLET PO SCH ×2 (08:37→20:26)
[2019-10-12] MEDS: PANTOPRAZOLE 40 MG TABLET PO SCH (08:37)
[2019-10-12] MEDS: PREGABALIN 75 MG CAPSULE PO SCH ×3 (08:37→20:25)
[2019-10-12] MEDS: ENOXAPARIN 40 MG/0.4 ML SYRINGE SUBCUT SCH (08:40)
[2019-10-12] MEDS ORDERED: fentaNYL 50 MCG/HR PATCH TRANSDERM SCH (09:00)
[2019-10-12] MEDS ORDERED: fentaNYL 100 MCG/HR PATCH TRANSDERM SCH (09:00)
[2019-10-12] MEDS ORDERED: fentaNYL 25 MCG/HR PATCH TRANSDERM SCH (09:00)
[2019-10-12] MEDS ORDERED: POLYETHYLENE GLYCOL POWDER 17 GM PACK PO PRN (12:57)
[2019-10-12] MEDS ORDERED: POLYETHYLENE GLYCOL POWDER 17 GM PACK PO ONE (12:58)
[2019-10-12] MEDS: DOCUSATE SODIUM 100 MG CAPSULE PO SCH ×2 (16:16→20:26)
[2019-10-12] MEDS: traZODone 50 MG TABLET PO SCH (20:25)
[2019-10-12] MEDS: IBUPROFEN 600 MG TABLET PO PRN (20:25)
[2019-10-13] MEDS: HYDROmorphone 2 MG TABLET PO PRN ×5 (03:24→18:34)
[2019-10-13] MEDS: DOCUSATE SODIUM 100 MG CAPSULE PO SCH (09:48)
[2019-10-13] MEDS: PREGABALIN 75 MG CAPSULE PO SCH ×2 (09:48→16:42)
[2019-10-13] MEDS: oxyCODONE ER 40 MG TABLET PO SCH (09:48)
[2019-10-13] MEDS: ENOXAPARIN 40 MG/0.4 ML SYRINGE SUBCUT SCH (09:48)
[2019-10-13] MEDS: IBUPROFEN 600 MG TABLET PO PRN (09:48)
[2019-10-13] MEDS: PANTOPRAZOLE 40 MG TABLET PO SCH (09:48)
[2019-10-13 15:41] VITALS: BP 104/64
== END 2019-10-13 18:54 | disposition home or self-care (01) | DRG 948 ==
LOC: N.ED 20:06 → N.EDINP 20:06 → SUATTDRO 22:09 → N.EDINP 23:00 → N.4E 23:21
PROVIDERS: ADMIT Internal Medicine; ATTEND Family Medicine

== ENCOUNTER 2020-02-08 05:34 | Inpatient (IN) ==
[2020-02-08] MEDS ORDERED: HYDROmorphone 2 MG/1 ML VIAL IV STA ×3 (06:25→09:12)
[2020-02-08] MEDS ORDERED: PIPERACILLIN/TAZOBACTAM 3,375 MG in SODIUM CHLORIDE 0.9% 100 ML IV STA (06:25)
[2020-02-08] MEDS ORDERED: SODIUM CHLORIDE 0.9% 1,000 ML IV STA (06:25)
[2020-02-08] MEDS ORDERED: ONDANSETRON 4 MG/2 ML VIAL IV STA (06:25)
[2020-02-08 06:40] LABS: Basophils % 0.1 % (0.0-0.8); Immature Granulocytes % 0.4 %; Immature Granulocytes Absolute 0.06 #; Lymphocytes # 0.2 10*3/uL (1.4-4.0); Lymphocytes % 1.4 % (21.3-54.2); Mean Corpuscular HGB Conc 29.7 GM/DL (32-36); Mean Corpuscular Volume 87.5 FL (87-102); Monocytes % 3.9 % (1.7-12.7); Neutrophils % 94.2 % (38.7-73.9); Platelet Count 247 T/CUMM (130-400); Red Blood Count 4.23 MC/CUMM (3.8-5.5); Red Cell Distribution Width 19.2 % (9.3-17.3); White Blood Count 14.1 T/CUMM (4-12)
[2020-02-08] MEDS ORDERED: DILTIAZEM 50 MG/10 ML VIAL IV STA (06:45)
[2020-02-08 06:53] LABS: Alanine Aminotransferase < 6 U/L (13-56); Albumin 1.9 G/DL (3.4-5.0); Alkaline Phosphatase 111 U/L (45-117); Aspartate Amino Transferase 21 U/L (0-37); Blood Urea Nitrogen 24 MG/DL (7-18); Calcium 11.1 MG/DL (8.5-10.1); Estimated Glom Filtration Rate 89 ML/MIN; Glucose 90 MG/DL (74-106); Osmolality,Calculated 273.1 MOS/KG (273-304); Total Protein 7.6 G/DL (6.4-8.3)
[2020-02-08] MEDS ORDERED: dilTIAZem Drip 125 MG/125 ML PREMIX IV SCH (07:00)
[2020-02-08 07:12] LABS: INR 1.2; PT Patient Result 12.3 SECS (9.8-11.9)
[2020-02-08 07:35] LABS: Anisocytosis 1+; Band Neutrophils 24 % (0-10); Lymphocytes 2 % (20-55); Metamyelocytes 1 %; Platelet Estimate Normal; Poikilocytosis Slight; Segmented Neutrophils 69 % (50-85); Total Cells Counted 100
[2020-02-08 09:47] LABS: Apearance,Urine CLEAR (Clear); Bilirubin,Urine Negative (Negative); Blood, Urine Negative (Negative); Glucose,Urine (UA) Negative (Negative); Ketones,Urine 5 mg/dL (Negative); Mucus,Urine Occasional /LPF (Occasional); Nitrite,Urine Negative (Negative); Protein,Urine 30 MG/DL; RBC,Urine 7 /HPF (0-4); Squamous Epithelial Cell,Urine Moderate /HPF (0-10); Urine Color Yellow (Yellow); Urine Specific Gravity > 1.060 (1.001-1.035); WBC,Urine 1 /HPF (0-6)
[2020-02-08] MEDS ORDERED: GLUCAGON 1 MG VIAL IM PRN (10:23)
[2020-02-08] MEDS ORDERED: ACETAMINOPHEN 325 MG TABLET PO PRN (10:23)
[2020-02-08] MEDS ORDERED: DEXTROSE 10% 250 ML BAG IV PRN (10:23)
[2020-02-08] MEDS ORDERED: POTASSIUM CHLORIDE RIDER 10 MEQ in PREMIX 1 EACH IV PRN (10:27)
[2020-02-08] MEDS: HYDROmorphone 2 MG/1 ML VIAL IV PRN ×5 (13:20→22:55)
[2020-02-08] MEDS ORDERED: LACTULOSE 20 GM/30 ML UDCUP PO PRN (14:45)
[2020-02-08] MEDS ORDERED: MORPHINE ER 30 MG TABLET PO SCH (15:00)
[2020-02-08] MEDS: fentaNYL 100 MCG/HR PATCH TRANSDERM SCH (16:41)
[2020-02-08] MEDS: SODIUM CHLORIDE 0.9% 1,000 ML IV SCH (16:41)
[2020-02-08] MEDS: PIPERACILLIN/TAZOBACTAM 3,375 MG in SODIUM CHLORIDE 0.9% 100 ML IV SCH (16:41)
[2020-02-08] MEDS: MORPHINE ER 30 MG TABLET PO PRN (21:42)
[2020-02-09] MEDS: PIPERACILLIN/TAZOBACTAM 3,375 MG in SODIUM CHLORIDE 0.9% 100 ML IV SCH ×3 (02:51→17:08)
[2020-02-09] MEDS: HYDROmorphone 2 MG/1 ML VIAL IV PRN ×2 (03:39→09:39)
[2020-02-09] MEDS: SODIUM CHLORIDE 0.9% 1,000 ML IV SCH ×2 (05:14→17:09)
[2020-02-09 07:25] LABS: Alanine Aminotransferase < 6 U/L (13-56); Albumin 1.4 G/DL (3.4-5.0); Alkaline Phosphatase 86 U/L (45-117); Aspartate Amino Transferase 26 U/L (0-37); Blood Urea Nitrogen 22 MG/DL (7-18); Calcium 10.3 MG/DL (8.5-10.1); Estimated Glom Filtration Rate 89 ML/MIN; Glucose 74 MG/DL (74-106); Osmolality,Calculated 274.8 MOS/KG (273-304); Total Protein 6.3 G/DL (6.4-8.3)
[2020-02-09 08:31] LABS: Basophils % 0.2 % (0.0-0.8); Hematocrit 32.3 VOL% (35.7-47.0); Hemoglobin 9.5 GM/DL (12.0-16.0); Immature Granulocytes % 0.5 %; Immature Granulocytes Absolute 0.07 #; Lymphocytes # 0.2 10*3/uL (1.4-4.0); Lymphocytes % 1.4 % (21.3-54.2); Mean Corpuscular HGB Conc 29.4 GM/DL (32-36); Mean Corpuscular Volume 88.7 FL (87-102); Mean Platelet Volume 10.8 FL (9.6-12.0); Monocytes % 5.9 % (1.7-12.7); Red Blood Count 3.64 MC/CUMM (3.8-5.5); White Blood Count 15.4 T/CUMM (4-12)
[2020-02-09 08:36] LABS: Platelet Count 271 T/CUMM (130-400)
[2020-02-09 09:34] LABS: Anisocytosis 2+; Band Neutrophils 25 % (0-10); Lymphocytes 1 % (20-55); Platelet Estimate Normal; Poikilocytosis Slight; Polychromasia Slight; Segmented Neutrophils 64 % (50-85); Total Cells Counted 100
[2020-02-09] MEDS ORDERED: NALOXONE 0.4 MG/ML VIAL IV PRN (09:34)
[2020-02-09] MEDS: ONDANSETRON 4 MG/2 ML VIAL IV PRN ×3 (09:36→17:27)
[2020-02-09] MEDS: PANTOPRAZOLE 40 MG TABLET PO SCH (09:41)
[2020-02-09] MEDS: HYDROmorphone PCA 30 MG/30 ML SYRINGE IV SCH (11:50)
[2020-02-09] MEDS: MORPHINE ER 30 MG TABLET PO PRN (17:06)
[2020-02-09] MEDS: POTASSIUM CHLORIDE 20 MEQ TABLET PO PRN (17:23)
[2020-02-10] MEDS: PIPERACILLIN/TAZOBACTAM 3,375 MG in SODIUM CHLORIDE 0.9% 100 ML IV SCH ×3 (02:00→17:59)
[2020-02-10 07:08] LABS: Basophils % 0.2 % (0.0-0.8); Eosinophils % 0.1 % (0.00-10.9); Hematocrit 28.9 VOL% (35.7-47.0); Hemoglobin 8.6 GM/DL (12.0-16.0); Immature Granulocytes Absolute 0.15 #; Lymphocytes # 0.2 10*3/uL (1.4-4.0); Lymphocytes % 1.4 % (21.3-54.2); Mean Corpuscular HGB Conc 29.8 GM/DL (32-36); Mean Platelet Volume 10.2 FL (9.6-12.0); Monocytes % 6.7 % (1.7-12.7); Neutrophils % 90.6 % (38.7-73.9); Platelet Count 229 T/CUMM (130-400); Red Blood Count 3.32 MC/CUMM (3.8-5.5); Red Cell Distribution Width 18.8 % (9.3-17.3); White Blood Count 15.6 T/CUMM (4-12)
[2020-02-10 07:23] LABS: Alanine Aminotransferase < 6 U/L (13-56); Albumin 1.3 G/DL (3.4-5.0); Alkaline Phosphatase 73 U/L (45-117); Aspartate Amino Transferase 24 U/L (0-37); Blood Urea Nitrogen 21 MG/DL (7-18); Calcium 10.3 MG/DL (8.5-10.1); Estimated Glom Filtration Rate 94 ML/MIN; Glucose 71 MG/DL (74-106); Osmolality,Calculated 279.4 MOS/KG (273-304); Total Protein 5.6 G/DL (6.4-8.3)
[2020-02-10 07:33] LABS: Band Neutrophils 9 % (0-10); Hypochromasia 1+; Lymphocytes 1 % (20-55); Segmented Neutrophils 81 % (50-85); Total Cells Counted 100
[2020-02-10 07:34] LABS: Anisocytosis 1+; Ovalocytes Slight
[2020-02-10] MEDS: PANTOPRAZOLE 40 MG TABLET PO SCH (09:09)
[2020-02-10] MEDS: MORPHINE ER 15 MG TABLET PO SCH ×3 (09:16→21:12)
[2020-02-10] MEDS: MORPHINE ER 30 MG TABLET PO SCH ×2 (09:16→15:33)
[2020-02-10] MEDS: POTASSIUM CHLORIDE 20 MEQ TABLET PO PRN ×4 (12:40→21:12)
[2020-02-10] MEDS: SODIUM CHLORIDE 0.9% 1,000 ML IV SCH (15:01)
[2020-02-11] MEDS: MORPHINE ER 30 MG TABLET PO SCH ×3 (00:24→16:08)
[2020-02-11] MEDS: PIPERACILLIN/TAZOBACTAM 3,375 MG in SODIUM CHLORIDE 0.9% 100 ML IV SCH ×3 (00:25→17:37)
[2020-02-11 06:28] LABS: Alanine Aminotransferase < 6 U/L (13-56); Albumin 1.2 G/DL (3.4-5.0); Alkaline Phosphatase 83 U/L (45-117); Aspartate Amino Transferase 29 U/L (0-37); Blood Urea Nitrogen 18 MG/DL (7-18); Calcium 10.7 MG/DL (8.5-10.1); Estimated Glom Filtration Rate 94 ML/MIN; Glucose 66 MG/DL (74-106); Osmolality,Calculated 276.5 MOS/KG (273-304); Total Protein 5.6 G/DL (6.4-8.3)
[2020-02-11 06:47] LABS: Basophils # 0.1 10*3/uL (0.0-0.2); Basophils % 0.3 % (0.0-0.8); Eosinophils % 0.1 % (0.00-10.9); Hematocrit 32.3 VOL% (35.7-47.0); Immature Granulocytes % 0.7 %; Immature Granulocytes Absolute 0.12 #; Lymphocytes # 0.3 10*3/uL (1.4-4.0); Lymphocytes % 1.6 % (21.3-54.2); Mean Corpuscular HGB Conc 27.9 GM/DL (32-36); Mean Corpuscular Volume 91.8 FL (87-102); Mean Platelet Volume 10.5 FL (9.6-12.0); Monocytes % 6.9 % (1.7-12.7); Neutrophils % 90.4 % (38.7-73.9); Platelet Count 246 T/CUMM (130-400); Red Blood Count 3.52 MC/CUMM (3.8-5.5); White Blood Count 18.4 T/CUMM (4-12)
[2020-02-11 07:01] LABS: Band Neutrophils 5 % (0-10); Lymphocytes 2 % (20-55); Segmented Neutrophils 87 % (50-85); Total Cells Counted 100
[2020-02-11 07:02] LABS: Hypochromasia 1+; Ovalocytes Slight; Platelet Estimate Adequate
[2020-02-11 07:03] LABS: Burr Cells Slight
[2020-02-11] MEDS: fentaNYL 100 MCG/HR PATCH TRANSDERM SCH (09:00)
[2020-02-11] MEDS: MORPHINE ER 15 MG TABLET PO SCH ×3 (09:02→21:03)
[2020-02-11] MEDS: POTASSIUM CHLORIDE 20 MEQ TABLET PO PRN ×3 (09:02→17:37)
[2020-02-11] MEDS: PANTOPRAZOLE 40 MG TABLET PO SCH (09:02)
[2020-02-11] MEDS ORDERED: HYDROmorphone 2 MG TABLET PO PRN (10:19)
[2020-02-11] MEDS: SODIUM CHLORIDE 0.9% 1,000 ML IV SCH (15:25)
[2020-02-11] MEDS: METHYLNALTREXONE 12 MG/0.6 ML VIAL SUBCUT SCH (15:28)
[2020-02-11] MEDS: HYDROmorphone PCA 30 MG/30 ML SYRINGE IV SCH ×2 (16:46→16:47)
[2020-02-12] MEDS: MORPHINE ER 30 MG TABLET PO SCH ×3 (00:41→16:05)
[2020-02-12] MEDS: PIPERACILLIN/TAZOBACTAM 3,375 MG in SODIUM CHLORIDE 0.9% 100 ML IV SCH ×3 (00:44→17:14)
[2020-02-12] MEDS: PANTOPRAZOLE 40 MG TABLET PO SCH (08:38)
[2020-02-12] MEDS: METHYLNALTREXONE 12 MG/0.6 ML VIAL SUBCUT SCH (08:40)
[2020-02-12] MEDS: MORPHINE ER 15 MG TABLET PO SCH (08:40)
[2020-02-12] MEDS ORDERED: MORPHINE ER 30 MG TABLET PO SCH ×2 (09:38→12:32)
[2020-02-12] MEDS: SODIUM CHLORIDE 0.9% 1,000 ML IV SCH (11:28)
[2020-02-12 12:17] VITALS: BP 157/81
== END 2020-02-12 17:02 | disposition hospice, home (50) | DRG 947 ==
LOC: EDBD → EDUNIT# → N.ED 05:34 → SUATTDRO 13:04 → N.EDINP 13:04 → N.TELES 14:11
PROVIDERS: ADMIT Family Medicine; ATTEND Internal Medicine